=== PATIENT | male | born 1985 | race African-American/Black ===

== ENCOUNTER 2016-08-26 15:15 | Inpatient (IN) | payer BC ==
--- NOTE | 2016-08-26 17:51 | HP ---
CIWA Score - CIWA Score Nausea/Vomitin Muscle Tremors: 3 Anxiety: 3 Agitation: 3 Paroxysmal Sweats: 2 Orientation: 0-Oriented Tacttile Disturbances: 2-Mild Itch/Numbness/Burn Auditory Disturbances: 2-Mild Harshness/Frighten Visual Disturbances: 2-Mild Sensitivity Headache: 2-Mild CIWA-Ar Total Score: 22 Admission ROS B[facility] - HPI Chief Complaint: I NEED HELP TO STOP DRINKING AND COCAINE Allergies/Adverse Reactions: Allergies Allergy/AdvReac Type Severity Reaction Status Date / Time No Known Allergies Allergy Verified 08/26/16 17:47 History of Present Illness: THIS 30 YEARS OLD MALE WITH ALCOHOL AND COCAINE DEPENDENCE,WITHDRAWAL SYMPTOM, LAST DETOX [facility] NOT COMPLETED SYNCOPE NICOTINE DEPENDENCE NICOTINE DEPENDENCE NO SIGNIFICANT PERIOD OF SOBRIETY Exam Limitations: No Limitations - Ebola screening Have you traveled outside of the country in the last 21 days: No (N) Have you had contact with anyone from an Ebola affected area: No Do you have a fever: No - Review of Systems Constitutional: Loss of Appetite, Malaise, Night Sweats, Changes in sleep EENT: reports: Nose Congestion Respiratory: reports: No Symptoms reported Cardiac: reports: No Symptoms Reported GI: reports: Nausea, Vomiting, Abdominal cramping : reports: No Symptoms Reported Musculoskeletal: reports: Back Pain, Muscle Pain Integumentary: reports: Dryness Neuro: reports: Headache, Tremors Endocrine: reports: No Symptoms Reported Hematology: reports: No Symptoms Reported Psychiatric: reports: No Sypmtoms Reported Patient History - Patient Medical History Hx Anemia: No Hx Asthma: No Hx Chronic Obstructive Pulmonary Disease (COPD): No Hx Cancer: No Hx Cardiac Disorders: No Hx Congestive Heart Failure: No Hx Hypertension: No Hx Hypercholesterolemia: No Hx Pacemaker: No HX Cerebrovascular Accident: No Hx Seizures: No Hx Dementia: No Hx Diabetes: No Hx Gastrointestinal Disorders: No Hx Liver Disease: No Hx Genitourinary Disorders: No Hx Sexually Transmitted Disorders: No Hx Renal Disease (ESRD): No Hx Thyroid Disease: No Hx Human Immunodeficiency Virus (HIV): No (LAST 02/01 NEGATIVE) Hx Hepatitis C: No Hx Depression: No Hx Suicide Attempt: No Hx Bipolar Disorder: No Hx Schizophrenia: No Other Medical History: NO SUICIDAL,NO HOMICIDAL - Patient Surgical History Past Surgical History: No - PPD History Previous Implant?: Yes Documented Results: Negative w/o proof Implanted On Prior [facility] Admission?: No PPD to be Administered?: Yes - Smoking Cessation Smoking history: Current every day smoker Have you smoked in the past 12 months: Yes Aproximately how many cigarettes per day: 5 Cigars Per Day: 0 Hx Chewing Tobacco Use: No Initiated information on smoking cessation: Yes 'Breaking Loose' booklet given: 08/26/16 Admission Physical Exam [facility] - Vital Signs Vital Signs: Vital Signs Temperature 98.1 F 08/26/16 18:03 Pulse Rate 59 L 08/26/16 18:03 Respiratory Rate 20 08/26/16 18:03 Blood Pressure 125/72 08/26/16 18:03 O2 Sat by Pulse Oximetry (%) - Physical General Appearance: Yes: Moderate Distress, Tremorous, Irritable, Sweating, Anxious HEENTM: Yes: Nasal Congestion Respiratory: Yes: Lungs Clear Neck: Yes: Within Normal Limits Breast: Yes: Within Normal Limits Cardiology: Yes: Within Normal Limits, Regular Rhythm, Regular Rate, S1, S2 Abdominal: Yes: Within Normal Limits, Normal Bowel Sounds, Non Tender, Flat, Soft Genitourinary: Yes: Within Normal Limits Back: Yes: Normal Inspection, Muscle Spasm Musculoskeletal: Yes: Back pain, Muscle Pain Extremities: Yes: Tremors Neurological: Yes: Within Normal Limits, 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, Fully Oriented, Alert, Motor Strength 5/5 Integumentary: Yes: Dry Lymphatic: Yes: Within Normal Limits - Diagnostic (1) Alcohol dependence with uncomplicated withdrawal Current Visit: Yes Status: Acute (2) Cocaine dependence Current Visit: Yes Status: Acute (3) Syncope Current Visit: Yes Status: Acute (4) Nicotine dependence Current Visit: Yes Status: Acute Cleared for Admission [facility] - Detox or Rehab [facility] Level of Care: Medically Managed Detox Regimen/Protocol: Librium [facility] Breath Alcohol Content Breath Alcohol Content: 0 Vital Signs - Vital Signs Vital Signs Refused: No Temperature: 98.1 F Temperature Source: Oral Pulse Rate: 59 Respiratory Rate: 20 Blood Pressure: 125/72 BP Location: Left Arm - Height Height: 6 ft 5 in - Weight Weight: 152 lb Body Mass Index (BMI): 18.0 Urine Drug Screen - Test Device Lot Number: [id number] Expiration Date: 04/18/18 - Control Is Test Valid: Yes - Results Drug Screen Negative: No Urine Drug Screen Results: BOBBY-Cocaine, BZO-Benzodiazepines
[2016-08-26] MEDS ORDERED: MAGNESIUM HYDROX 2400MG/30ML ORAL SUSPENSION 30 ML CUP PO PRN (18:07)
[2016-08-26] MEDS ORDERED: chlordiazePOXIDE HCL 25 MG CAPSULE PO PRN (18:07)
[2016-08-26] MEDS ORDERED: guaiFENesin/D-METHORPHAN HB 10 ML UNIT-DOSE CUPS PO PRN (18:07)
[2016-08-26] MEDS ORDERED: MAGNESIUM CITRATE 300 ML BOTTLE PO PRN (18:07)
[2016-08-26] MEDS ORDERED: hydrOXYzine PAMOATE 50 MG CAPSULE (FP) PO PRN (18:07)
[2016-08-26] MEDS ORDERED: MENTHOL/PHENOL 1 EACH UD MM PRN (18:07)
[2016-08-26] MEDS ORDERED: IBUPROFEN 400 MG TABLET (FP) PO PRN (18:07)
[2016-08-26] MEDS ORDERED: MAG HYDROX/AL HYDROX/SIMETH 30 ML UNIT-DOSE CUP PO PRN (18:07)
[2016-08-26] MEDS ORDERED: LOPERAMIDE HCL 2 MG CAPSULE PO PRN (18:07)
[2016-08-26] MEDS ORDERED: chlordiazePOXIDE HCL 25 MG CAPSULE PO ONE (18:07)
[2016-08-26] MEDS ORDERED: P-EPHED 60MG/TRIPROLIDI 2.5MG TABLET PO PRN (18:07)
[2016-08-26] MEDS ORDERED: ACETAMINOPHEN 325 MG TABLET (FP) PO PRN (18:07)
[2016-08-26 18:56] VITALS: BMI 18.0
[2016-08-26] MEDS: NICOTINE POLACRILEX 2 MG GUM BC PRN (19:45)
[2016-08-26] MEDS: THIAMINE HCL 100 MG TABLET (FP) PO SCH (22:44)
[2016-08-26] MEDS: chlordiazePOXIDE HCL 25 MG CAPSULE PO SCH (22:44)
[2016-08-26] MEDS: diphenhydrAMINE HCL 50 MG CAPSULE PO PRN (22:45)
[2016-08-27] MEDS: chlordiazePOXIDE HCL 25 MG CAPSULE PO SCH ×4 (05:58→22:13)
[2016-08-27 10:04] LABS: MCH 28.2 pg (25.7-33.7); MCHC 32.1 g/dl (32.0-35.9); MEAN PLT VOLUME 8.8 fl (7.5-11.1); PLATELET COUNT 322 K/MM3 (134-434); RDW 14.1 % (11.9-15.9); WHITE BLOOD COUNT 4.5 K/mm3 (4.0-10.0)
[2016-08-27 10:22] LABS: ALBUMIN 3.6 g/dl (3.4-5.0); ALK PHOS 63 U/L (45-117); ANION GAP 7 (8-16); BILIRUBIN,TOTAL 0.4 mg/dL (0.2-1.0); CALCIUM 9.2 mg/dL (8.5-10.1); CO2 28 mmol/L (21-32); CREATININE 0.9 mg/dL (0.7-1.3); GLUCOSE,RANDOM 79 mg/dL (74-106); SGOT/AST 29 U/L (15-37); SGPT/ALT 49 U/L (12-78); TOT PROT 6.9 g/dl (6.4-8.2)
[2016-08-27] MEDS: PRENATAL VITAMINS W/ FOLIC ACID TABLET (FP) PO SCH (10:31)
--- NOTE | 2016-08-27 11:21 | PN ---
S CIWA - CIWA Score Nausea/Vomitin-No Nausea/No Vomiting Muscle Tremors: 3 Anxiety: 3 Agitation: 4-Moderately Restless Paroxysmal Sweats: 3 Orientation: 0-Oriented Tacttile Disturbances: 0-None Auditory Disturbances: 0-None Visual Disturbances: 0-None Headache: 0-None Present CIWA-Ar Total Score: 13 BHS Progress Note (SOAP) Subjective: ANXIETY,TREMORS,SWEATING,INTERRUPTED SLEEP,RESTLESS. Objective: 08/27/16 11:18 Vital Signs - 8 hr 08/27/16 08/27/16 08/27/16 03:19 06:18 10:18 Temperature 97.3 F L 98.2 F Pulse Rate 70 66 Respiratory 18 18 18 Rate Blood Pressure 114/75 117/77 Laboratory Tests 08/27/16 08/27/16 08/27/16 06:30 06:30 06:30 WBC 4.5 RBC 4.76 Hgb 13.4 Hct 41.9 MCV 88.0 MCHC 32.1 RDW 14.1 Plt Count 322 MPV 8.8 Sodium 141 Potassium 4.1 Chloride 106 Carbon Dioxide 28 Anion Gap 7 L BUN 14 Creatinine 0.9 Creat Clearance w eGFR > 60 Random Glucose 79 Calcium 9.2 Total Bilirubin 0.4 AST 29 ALT 49 Alkaline Phosphatase 63 Total Protein 6.9 Albumin 3.6 RPR Titer Nonreactive LABS NOTED Assessment: 08/27/16 11:18 WITHDRAWAL SX. Plan: CONTINUE DETOX
[2016-08-27 13:28] LABS: SICKLE CELL SCREEN NEGATIVE (NEGATIVE)
[2016-08-27 14:03] LABS: URINE APPEARANCE CLEAR; URINE BILIRUBIN NEGATIVE (NEGATIVE); URINE BLOOD NEGATIVE (NEGATIVE); URINE COLOR LTYELLOW; URINE GLUCOSE (UA) NEGATIVE (NEGATIVE); URINE KETONE NEGATIVE (NEGATIVE); URINE LEUK ESTERASE NEGATIVE (NEGATIVE); URINE NITRITE NEGATIVE (NEGATIVE); URINE PROTEIN NEGATIVE (NEGATIVE); URINE UROBILINOGEN NEGATIVE E.U./dl (0.2-1.0)
[2016-08-27] MEDS: NICOTINE POLACRILEX 2 MG GUM BC PRN (17:37)
[2016-08-27] MEDS: THIAMINE HCL 100 MG TABLET (FP) PO SCH (22:13)
[2016-08-27] MEDS: diphenhydrAMINE HCL 50 MG CAPSULE PO PRN (22:14)
[2016-08-28] MEDS: chlordiazePOXIDE HCL 25 MG CAPSULE PO SCH ×3 (05:40→17:38)
[2016-08-28] MEDS: PRENATAL VITAMINS W/ FOLIC ACID TABLET (FP) PO SCH (10:23)
--- NOTE | 2016-08-28 11:38 | PN ---
[facility] CIWA - CIWA Score Nausea/Vomitin-No Nausea/No Vomiting Muscle Tremors: 4-Moderate,w/Arms Extend Anxiety: 4-Mod. Anxious/Guarded Agitation: 4-Moderately Restless Paroxysmal Sweats: 1-Minimal Palms Moist Orientation: 0-Oriented Tacttile Disturbances: 3-Moderate Itch/Numb/Burn Auditory Disturbances: 0-None Visual Disturbances: 0-None Headache: 0-None Present CIWA-Ar Total Score: 16 BHS Progress Note (SOAP) Subjective: ANXIETY, TREMORS, SWEATS. Objective: 08/28/16 11:38 Vital Signs Temperature 98.1 F 08/28/16 09:50 Pulse Rate 66 08/28/16 09:50 Respiratory Rate 18 08/28/16 09:50 Blood Pressure 116/78 08/28/16 09:50 O2 Sat by Pulse Oximetry (%) Laboratory Last Values WBC 4.5 K/mm3 (4.0-10.0) 08/27/16 06:30 RBC 4.76 M/mm3 (4.00-5.60) 08/27/16 06:30 Hgb 13.4 GM/dL (11.7-16.9) 08/27/16 06:30 Hct 41.9 % (35.4-49) 08/27/16 06:30 MCV 88.0 fl (80-96) 08/27/16 06:30 MCHC 32.1 g/dl (32.0-35.9) 08/27/16 06:30 RDW 14.1 % (11.9-15.9) 08/27/16 06:30 Plt Count 322 K/MM3 (134-434) 08/27/16 06:30 MPV 8.8 fl (7.5-11.1) 08/27/16 06:30 Sickle Cell Screen Negative (NEGATIVE) 08/27/16 06:30 Sodium 141 mmol/L (136-145) 08/27/16 06:30 Potassium 4.1 mmol/L (3.5-5.1) 08/27/16 06:30 Chloride 106 mmol/L (98-107) 08/27/16 06:30 Carbon Dioxide 28 mmol/L (21-32) 08/27/16 06:30 Anion Gap 7 (8-16) L 08/27/16 06:30 BUN 14 mg/dL (7-18) 08/27/16 06:30 Creatinine 0.9 mg/dL (0.7-1.3) 08/27/16 06:30 Creat Clearance w eGFR > 60 (>60) 08/27/16 06:30 Random Glucose 79 mg/dL (74-106) 08/27/16 06:30 Calcium 9.2 mg/dL (8.5-10.1) 08/27/16 06:30 Total Bilirubin 0.4 mg/dL (0.2-1.0) 08/27/16 06:30 AST 29 U/L (15-37) 08/27/16 06:30 ALT 49 U/L (12-78) 08/27/16 06:30 Alkaline Phosphatase 63 U/L (45-117) 08/27/16 06:30 Total Protein 6.9 g/dl (6.4-8.2) 08/27/16 06:30 Albumin 3.6 g/dl (3.4-5.0) 08/27/16 06:30 Urine Color Ltyellow 08/27/16 10:20 Urine Appearance Clear 08/27/16 10:20 Urine pH 7.0 (5.0-8.0) 08/27/16 10:20 Ur Specific [place] 1.016 (1.001-1.035) 08/27/16 10:20 Urine Protein Negative (NEGATIVE) 08/27/16 10:20 Urine Glucose (UA) Negative (NEGATIVE) 08/27/16 10:20 Urine Ketones Negative (NEGATIVE) 08/27/16 10:20 Urine Blood Negative (NEGATIVE) 08/27/16 10:20 Urine Nitrite Negative (NEGATIVE) 08/27/16 10:20 Urine Bilirubin Negative (NEGATIVE) 08/27/16 10:20 Urine Urobilinogen Negative E.U./dl (0.2-1.0) 08/27/16 10:20 Ur Leukocyte Esterase Negative (NEGATIVE) 08/27/16 10:20 RPR Titer Nonreactive (NONREACTIVE) 08/27/16 06:30 Assessment: 08/28/16 11:38 WITHDRAWAL SX Plan: CONTINUE DETOX
[2016-08-28] MEDS: NICOTINE POLACRILEX 2 MG GUM BC PRN (17:50)
[2016-08-28] MEDS: THIAMINE HCL 100 MG TABLET (FP) PO SCH (22:13)
[2016-08-28] MEDS: chlordiazePOXIDE 5 MG CAPSULE PO SCH (22:13)
[2016-08-28] MEDS: diphenhydrAMINE HCL 50 MG CAPSULE PO PRN (22:13)
[2016-08-29] MEDS: chlordiazePOXIDE 5 MG CAPSULE PO SCH ×3 (06:09→17:59)
--- NOTE | 2016-08-29 09:46 | PN ---
[facility] Progress Note (SOAP) Subjective: ANXIETY,IRRITABILITY, SOMETIMES NOT RECEPTIVE TO STAFF, ANGRY, TEMPERAMENTAL-- BANGING HIS ROOM DOOR HE WALKS FROM DAY ROOM AREA FOR UNKNOWN REASON TO STAFF. Objective: 08/29/16 09:42 Vital Signs Temperature 98.9 F 08/28/16 22:56 Pulse Rate 72 08/28/16 22:56 Respiratory Rate 16 08/29/16 03:30 Blood Pressure 124/73 08/28/16 22:56 O2 Sat by Pulse Oximetry (%) Laboratory Last Values WBC 4.5 K/mm3 (4.0-10.0) 08/27/16 06:30 RBC 4.76 M/mm3 (4.00-5.60) 08/27/16 06:30 Hgb 13.4 GM/dL (11.7-16.9) 08/27/16 06:30 Hct 41.9 % (35.4-49) 08/27/16 06:30 MCV 88.0 fl (80-96) 08/27/16 06:30 MCHC 32.1 g/dl (32.0-35.9) 08/27/16 06:30 RDW 14.1 % (11.9-15.9) 08/27/16 06:30 Plt Count 322 K/MM3 (134-434) 08/27/16 06:30 MPV 8.8 fl (7.5-11.1) 08/27/16 06:30 Sickle Cell Screen Negative (NEGATIVE) 08/27/16 06:30 Sodium 141 mmol/L (136-145) 08/27/16 06:30 Potassium 4.1 mmol/L (3.5-5.1) 08/27/16 06:30 Chloride 106 mmol/L (98-107) 08/27/16 06:30 Carbon Dioxide 28 mmol/L (21-32) 08/27/16 06:30 Anion Gap 7 (8-16) L 08/27/16 06:30 BUN 14 mg/dL (7-18) 08/27/16 06:30 Creatinine 0.9 mg/dL (0.7-1.3) 08/27/16 06:30 Creat Clearance w eGFR > 60 (>60) 08/27/16 06:30 Random Glucose 79 mg/dL (74-106) 08/27/16 06:30 Calcium 9.2 mg/dL (8.5-10.1) 08/27/16 06:30 Total Bilirubin 0.4 mg/dL (0.2-1.0) 08/27/16 06:30 AST 29 U/L (15-37) 08/27/16 06:30 ALT 49 U/L (12-78) 08/27/16 06:30 Alkaline Phosphatase 63 U/L (45-117) 08/27/16 06:30 Total Protein 6.9 g/dl (6.4-8.2) 08/27/16 06:30 Albumin 3.6 g/dl (3.4-5.0) 08/27/16 06:30 Urine Color Ltyellow 08/27/16 10:20 Urine Appearance Clear 08/27/16 10:20 Urine pH 7.0 (5.0-8.0) 08/27/16 10:20 Ur Specific [place] 1.016 (1.001-1.035) 08/27/16 10:20 Urine Protein Negative (NEGATIVE) 08/27/16 10:20 Urine Glucose (UA) Negative (NEGATIVE) 08/27/16 10:20 Urine Ketones Negative (NEGATIVE) 08/27/16 10:20 Urine Blood Negative (NEGATIVE) 08/27/16 10:20 Urine Nitrite Negative (NEGATIVE) 08/27/16 10:20 Urine Bilirubin Negative (NEGATIVE) 08/27/16 10:20 Urine Urobilinogen Negative E.U./dl (0.2-1.0) 08/27/16 10:20 Ur Leukocyte Esterase Negative (NEGATIVE) 08/27/16 10:20 RPR Titer Nonreactive (NONREACTIVE) 08/27/16 06:30 Assessment: 08/29/16 09:45 WITHDRAWAL SX Plan: CONTINUE DETOX MONITOR PT'S BEHAVIOR/ SAFETY
--- NOTE | 2016-08-29 10:23 | EKG ---
Test Reason : Blood Pressure : / mmHG Vent. Rate : 067 BPM Atrial Rate : 067 BPM P-R Int : 142 ms QRS Dur : 088 ms QT Int : 396 ms P-R-T Axes : 049 065 066 degrees QTc Int : 418 ms NORMAL SINUS RHYTHM NORMAL ECG NO PREVIOUS ECGS AVAILABLE Confirmed by HENRRY SMITH, CRISTELA ([id number]) on 08/29/2016 10:23:24 AM Referred By: Confirmed By:CRISTELA SALES MD
[2016-08-29] MEDS: PRENATAL VITAMINS W/ FOLIC ACID TABLET (FP) PO SCH (10:30)
[2016-08-29] MEDS: NICOTINE POLACRILEX 2 MG GUM BC PRN ×2 (17:59→23:15)
[2016-08-29 22:25] VITALS: BP 122/67; PULSE 69; TEMP 99.1
[2016-08-29] MEDS: chlordiazePOXIDE HCL 10 MG CAPSULE PO SCH (23:15)
[2016-08-29] MEDS: THIAMINE HCL 100 MG TABLET (FP) PO SCH (23:15)
[2016-08-29] MEDS: diphenhydrAMINE HCL 50 MG CAPSULE PO PRN (23:15)
[2016-08-30] MEDS: chlordiazePOXIDE HCL 10 MG CAPSULE PO SCH (06:04)
--- NOTE | 2016-08-30 11:13 | DS ---
[facility] Detox Discharge Summary Admission Date: 08/26/16 Discharge Date: 08/30/16 - History Present History: Alcohol Dependence, Cocaine Dependence Additional Comments: NONE Pertinent Past History: DENIES PMHx/PPSYHx - Physical Exam Results Vital Signs: Vital Signs Temperature 99.1 F 08/29/16 22:25 Pulse Rate 69 08/29/16 22:25 Respiratory Rate 18 08/30/16 03:30 Blood Pressure 122/67 08/29/16 22:25 O2 Sat by Pulse Oximetry (%) Pertinent Admission Physical Exam Findings: WITHDRAWAL SX - Treatment Hospital Course: Detox Protocol Followed, Detoxed Safely, Responded well, Discharged Condition Good - Diagnosis (1) Alcohol dependence with uncomplicated withdrawal Status: Acute (2) Cocaine dependence Status: Acute Qualifiers: Substance use status: uncomplicated Qualified Code(s): F14.20 - Cocaine dependence, uncomplicated (3) Nicotine dependence Status: Chronic Qualifiers: Nicotine product type: cigarettes Substance use status: uncomplicated Qualified Code(s): F17.210 - Nicotine dependence, cigarettes, uncomplicated (4) Syncope Status: Acute - AMA Did Patient Leave Against Medical Advice: No
== END 2016-08-30 10:15 | disposition home or self-care (01) | DRG 774 ==
LOC: YASAS 15:15 → Y3N 17:55
PROVIDERS: ADMIT Internal Medicine; ATTEND Internal Medicine
PROC: HZ2ZZZZ Detoxification Services for Substance Abuse Treatment (ICD-10-PCS; principal; 2016-08-26)
DX: F10.230 Alcohol dependence with withdrawal, uncomplicated (principal); F14.20 Cocaine dependence, uncomplicated; F17.210 Nicotine dependence, cigarettes, uncomplicated; Z86.79 Personal history of other diseases of the circulatory system
CPT/HCPCS: 36415; 80053; 81003; 85027; 85660; 86593; 93005; 93010